=== PATIENT | female | born 1985 | race Caucasian/White ===

== ENCOUNTER 2020-09-30 16:23 | Emergency (ER) | payer OTHER ==
[2020-09-30] MEDS ORDERED: SODIUM CHLORIDE 0.9% 1,000 ML IV STA (16:59)
[2020-09-30] MEDS ORDERED: SUMAtriptan 6 MG/0.5 ML VIAL SUBQ STA (17:00)
[2020-09-30 17:13] LABS: BILIRUBIN,URINE NEGATIVE (NEGATIVE); GLUCOSE, URINE (UA) NEGATIVE (NEGATIVE); KETONES,URINE (UA) NEGATIVE (NEGATIVE); LEUKOCYTE ESTERASE, URINE NEGATIVE (NEGATIVE); NITRITE,URINE NEGATIVE (NEGATIVE); OCCULT BLOOD,URINE NEGATIVE (NEGATIVE); PROTEIN,URINE NEGATIVE (NEGATIVE); UROBILINOGEN,URINE 0.2 (NORMAL) E.U./dL (NORMAL)
[2020-09-30 17:15] LABS: CLARITY,URINE CLEAR (CLEAR); HCG UR QUAL NEGATIVE
[2020-09-30 17:15] LABS: BASOPHILS % (AUTO) 0.4 %; EOSINOPHILS # (AUTO) 0.2 10^3/uL (0.0-0.7); EOSINOPHILS % (AUTO) 2.9 %; HCT - HEMATOCRIT 41.4 % (37.0-47.0); LYMPHOCYTES # (AUTO) 1.7 10^3/uL (1.5-3.5); LYMPHOCYTES % (AUTO) 23.4 %; MEAN CORPUSCULAR HGB CONC 33.8 g/dL (32.0-36.0); MEAN CORPUSCULAR VOLUME 91.6 fL (81.0-99.0); MONOCYTES # (AUTO) 0.4 10^3/uL (0.0-1.0); MONOCYTES % (AUTO) 5.3 %; NEUTROPHILS # (AUTO) 4.9 10^3/uL (1.5-6.6); NEUTROPHILS % (AUTO) 67.7 %; PLT - PLATELET COUNT 219 10^3/uL (130-450); RED BLOOD COUNT 4.52 10^6/uL (4.20-5.40); RED CELL DISTRIBUTION WIDTH 12.7 % (12.0-15.0); WHITE BLOOD COUNT 7.2 x10^3/uL (4.8-10.8)
[2020-09-30 17:25] LABS: ALBUMIN 5.2 g/dL (3.2-5.5); BILIRUBIN,TOTAL 0.6 mg/dL (0.2-1.0); CALCIUM 9.6 mg/dL (8.5-10.3); CREATININE 0.9 mg/dL (0.4-1.0); POTASSIUM 3.4 mmol/L (3.5-5.0); TOTAL PROTEIN 7.8 g/dL (6.7-8.2)
--- NOTE | 2020-09-30 17:25 | CT Report ---
PROCEDURE: HEAD WO INDICATIONS: headache, dizzy TECHNIQUE: Noncontrast 4.5 mm thick angled axial sections acquired from the foramen magnum to the vertex. For r adiation dose reduction, the following was used: automated exposure control, adjustment of mA and/or kV according to patient size. COMPARISON: None. FINDINGS: Image quality: Excellent. CSF spaces: Basal cisterns are patent. No extra-axial fluid collections. Ventricles are normal in size and shape. Brain: No midline shift. No intracranial masses or hemorrhage. Durán-white matter interface is norm al. Skull and face: Calvarium and visualized facial bones are intact, without suspicious lesions. Sinuses: Visualized sinuses and mastoids are clear. IMPRESSION: No acute intracranial process. Reviewed by: Jarred Wagner MD on 09/30/2020 5:24 PM PST Approved by: Jarred Wagner MD on 09/30/2020 5:24 PM PST Station ID: [id number]
--- NOTE | 2020-09-30 17:46 | ED Physician Documentation ---
History of Present Illness - Stated complaint Stated Complaint: LOST VISION/DIZZY - Chief complaint Chief Complaint: Neuro - History obtained from History obtained from: Patient - History of Present Illness Timing: Today Pain level max: 4 Pain level now: 2 - Additonal information Additional information: 34-year-old female presents to the emergency department stating that she was at work today when she felt lightheaded and dizzy. She felt like her vision became tunneled and then developed a gradual onset headache. Has a history of migraines. No chest pain. No shortness of breath. She states that she ate and drank normally today. Currently is feeling better other than a mild headache. Rated as 2-4 out of 10. No fevers. No chills. She is not , breast- feeding or trying to become . No abdominal pain. Review of Systems Ten Systems: 10 systems reviewed and negative Constitutional: denies: Fever, Chills Nose: denies: Rhinorrhea / runny nose, Congestion Respiratory: denies: Cough GI: denies: Vomiting, Diarrhea, Hematemesis, Bloody / black stool Skin: denies: Rash Musculoskeletal: denies: Neck pain, Back pain Neurologic: denies: Headache PD PAST MEDICAL HISTORY - Past Medical History Past Medical History: Yes Cardiovascular: Other - Past Surgical History Past Surgical History: Yes - Present Medications Home Medications: Ambulatory Orders Medication Instructions Recorded Confirmed Benzonatate [Tessalon Perle] 100 mg PO BID PRN #14 capsule 02/25/14 Cetirizine HCl/Pseudoephedrine 1 each PO BID PRN #30 tab.er.12h 02/25/14 [Zyrtec-D Tablet] - Allergies Allergies/Adverse Reactions: Allergies Allergy/AdvReac Type Severity Reaction Status Date / Time No Known Drug Allergies Allergy Verified 09/30/20 16:50 - Social History Does the pt smoke?: No Smoking Status: Never smoker Does the pt drink ETOH?: Yes Does the pt have substance abuse?: No - Immunizations Immunizations are current?: Yes - POLST Patient has POLST: Yes PD ED PE NORMAL - Vitals Vital signs reviewed: Yes - General General: Alert and oriented X 3, No acute distress - HEENT HEENT: Atraumatic, PERRL, EOMI, Moist mucous membranes - Neck Neck: Supple, no meningeal sign - Cardiac Cardiac: RRR, No murmur, Strong equal pulses - Respiratory Respiratory: No respiratory distress, Clear bilaterally - Abdomen Abdomen: Soft, Non tender, Non distended - Derm Derm: Warm and dry, No rash - Extremities Extremities: No edema, No calf tenderness / cord - Neuro Neuro: Alert and oriented X 3, 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, No motor deficit, No sensory deficit, Normal speech Eye Opening: Spontaneous Motor: Obeys Commands Verbal: Oriented GCS Score: 15 - Psych Psych: Normal mood, Normal affect Results - Vitals Vitals: Vital Signs - 24 hr 09/30/20 09/30/20 09/30/20 16:32 16:50 17:06 Temperature 36.0 C L Heart Rate 93 87 72 Respiratory 20 22 19 Rate Blood Pressure 156/105 H 135/88 H 116/80 O2 Saturation 99 99 100 09/30/20 18:01 Temperature Heart Rate 69 Respiratory 16 Rate Blood Pressure 122/91 H O2 Saturation 100 Oxygen O2 Source Room air - EKG (time done) 1713 Rate: Rate (enter#) (69) Rhythm: NSR, Other (Sinus arrhythmia) [place]: Normal Intervals: Normal [place] QRS: Normal Ischemia: Normal ST segments Other comments: Other comments (PVC) - Labs Labs: Laboratory Tests 09/30/20 09/30/20 09/30/20 16:42 16:42 16:45 WBC 7.2 RBC 4.52 Hgb 14.0 Hct 41.4 MCV 91.6 MCH 31.0 MCHC 33.8 RDW 12.7 Plt Count 219 MPV 10.0 Neut # (Auto) 4.9 Lymph # (Auto) 1.7 [place] # (Auto) 0.4 Eos # (Auto) 0.2 Baso # (Auto) 0.0 Absolute Nucleated RBC 0.00 Nucleated RBC % 0.0 Sodium 139 Potassium 3.4 L Chloride 105 Carbon Dioxide 24 Anion Gap 10.0 BUN 12 Creatinine 0.9 Estimated GFR (MDRD) 73 L Glucose 106 H Calcium 9.6 Total Bilirubin 0.6 AST 24 ALT 16 Alkaline Phosphatase 45 Total Protein 7.8 Albumin 5.2 Globulin 2.6 Albumin/Globulin Ratio 2.0 Urine Color YELLOW Urine Clarity CLEAR Urine pH 7.0 Ur Specific [place] <=1.005 Urine Protein NEGATIVE Urine Glucose (UA) NEGATIVE Urine Ketones NEGATIVE Urine Occult Blood NEGATIVE Urine Nitrite NEGATIVE Urine Bilirubin NEGATIVE Urine Urobilinogen 0.2 (NORMAL) Ur Leukocyte Esterase NEGATIVE Ur Microscopic Review NOT INDICATED Urine Culture Comments NOT INDICATED Urine HCG, Qual NEGATIVE - Rads (name of study) head w/o CT Radiology: Prelim report reviewed, EMP read contemporaneously, See rad report (No acute intracranial process. ) PD MEDICAL DECISION MAKING - ED course Complexity details: reviewed results, re-evaluated patient, considered differen tial, d/w patient ED course: 34-year-old female with near syncope today as well as a mild headache. No acute findings on head CT. Headache resolved with Imitrex. Symptoms resolved in the emergency department. No acute findings on telemetry, EKG or laboratory testing. We will have her follow-up with her doctor for further care. Patient is well-appearing, nontoxic. Afebrile. No hypoxia. Normal neurological exam. Patient counseled regarding signs and symptoms for which I believe and urgent re-evaluation would be necessary. Patient with good understanding of and agreement to plan and is comfortable going home at this time This document was made in part using voice recognition software. While efforts are made to proofread this document, sound alike and grammatical errors may occur. Departure - Departure Disposition: 01 Home, Self Care Clinical Impression: Near syncope Headache Qualifiers: Headache type: unspecified Headache chronicity pattern: unspecified pattern Intractability: not intractable Qualified Code(s): R51.9 - Headache, unspecified Condition: Good Instructions: ED Near Syncope Unkn Follow-Up: RIAN BURGESS DO [Primary Care Provider] - Within 1 week Comments: The cause of your symptoms is unclear today, it may be related to a migraine with aura. Your laboratory testing, EKG and head CT did not show any acute abnormalities. Follow-up with your doctor for further care. Discharge Date/Time: 09/30/20 18:32
[2020-09-30 18:02] VITALS: BP 122/91
== END 2020-09-30 18:32 | disposition home or self-care (01) ==
LOC: ED 16:23
DX: R55 Syncope and collapse (principal); R51.9 Headache, unspecified; I49.3 Ventricular premature depolarization
CPT/HCPCS: 36415; 80053; 81001; 81003; 81025; 85025; 87086; 93005; 96360; 99284